=== PATIENT | male | born 1995 | race American Indian/Alaskan Native ===

== ENCOUNTER 2021-10-25 09:12 | Emergency (ER) | payer OTHER, BC ==
[2021-10-25 10:00] VITALS: BP 126/84
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
[2021-10-25] MEDS ORDERED: HYDROcodone/ACETAMINOPHEN 5-325 MG TAB PO ONE (12:51)
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
--- NOTE | 2021-10-25 13:13 | XRay Report ---
LEFT ANKLE 3 VIEWS INDICATION: ankle injuiry. COMPARISON: None. IMPRESSION: There is moderate diffuse soft tissue swelling. No acute osseous abnormality or signifi cant joint pathology is demonstrated. Signer Name: Chuckie Croft Jr, MD Signed: 10/25/2021 1:08 PM Workstation Name: [id number]
== END 2021-10-25 15:42 | disposition home or self-care (01) ==
LOC: ED 09:12
DX: M25.572 Pain in left ankle and joints of left foot (principal); Z79.899 Other long term (current) drug therapy; V87.7XXA Person injured in collision between other specified motor vehicles (traffic), initial encounter; Y93.89 Activity, other specified; Y92.488 Other paved roadways as the place of occurrence of the external cause; Y99.8 Other external cause status
CPT/HCPCS: 99283